=== PATIENT | female | born 1960 | race Caucasian/White ===

== ENCOUNTER → 2021-10-11 | Outpatient (CLI) | payer BC | LOC: VAS 13:11 → RAD 13:11 | DX: M79.604 Pain in right leg (principal); M79.89 Other specified soft tissue disorders ==

== ENCOUNTER → 2021-12-01 | Outpatient (CLI) | payer BC | LOC: RAD 13:33 | DX: M54.14 Radiculopathy, thoracic region (principal); M54.50 Low back pain, unspecified | CPT/HCPCS: A9585 ==